=== PATIENT | male | born 1965 | race Two or more races ===

== ENCOUNTER → 2020-07-07 | Emergency (ER) | payer OTHER ==
[~2020-07-07] VITALS: Ht 152.4 cm; Wt 72.6 kg
[~2020-07-07] MED LIST: ACETAMINOPHEN 325 MG TAB PO ONE; TETANUS-DIPTH-ACEL PERTUSSIS 0.5ML SYR Tdap IM ONE; cefTRIAXone SOD 1,000 MG VL IM ONE; cefTRIAXone SOD 1,000 MG VL ONE
[2020-07-07 15:34] VITALS: BP 148/79
== END | disposition home or self-care (01) ==
LOC: ER 14:27
DX: S61.217A Laceration without foreign body of left little finger without damage to nail, initial encounter (principal); W26.9XXA Contact with unspecified sharp object(s), initial encounter; Y93.89 Activity, other specified; Y92.89 Other specified places as the place of occurrence of the external cause; Y99.8 Other external cause status
CPT/HCPCS: 12002; 73140; 90471; 90715; 96372; 99284; J0696